=== PATIENT | female | born 1995 | race Hispanic/Latino ===

== ENCOUNTER 2017-09-28 20:40 | Outpatient (CLI) | payer MEDICAID ==
[2017-09-28 21:06] VITALS: BP 110/64
--- NOTE | 2017-09-29 01:37 | Ultrasound Report ---
FINAL REPORT EXAM: US OB BPP WO NON-STRESS HISTORY: Decreased Movement TECHNIQUE: A limited OB sonogram was obtained for evaluation of the abdomen of fluid index. FINDINGS: The VSAU is 13.4 cm which is normal. The heart rate is 173 BPM. The biophysical profile score is 8 out of 8. IMPRESSION: The VASU is normal at 13.4 cm. The biophysical profile score is 8 out of 8. The heart rate is 173 BPM.
--- NOTE | 2017-09-29 01:38 | Ultrasound Report ---
FINAL REPORT EXAM: US OB LIMITED HISTORY: Decreased Movement TECHNIQUE: A limited OB sonogram was obtained for evaluation of biophysical profile and abdominal fluid volume. FINDINGS: The biophysical profile score was 8 out of 8. The VASU is 13.4 cm which is normal. The heart rate is 173 BPM. IMPRESSION: Biophysical profile score of 8 out of 8. Normal VASU of 13.4 cm. The heart rate is 173 BPM
== END 2017-09-29 00:32 | disposition home or self-care (01) ==
LOC: TRG 20:40
PROVIDERS: ATTEND Obstetrics & Gynecology
DX: O62.9 Abnormality of forces of labor, unspecified (principal); O99.333 Smoking (tobacco) complicating pregnancy, third trimester; F17.210 Nicotine dependence, cigarettes, uncomplicated; Z3A.33 33 weeks gestation of pregnancy
CPT/HCPCS: 59025; 76815; 76819

== ENCOUNTER 2017-10-07 20:13 | Outpatient (CLI) | payer MEDICAID ==
[2017-10-07] MEDS ORDERED: LACTATED RINGERS 1,000 ML IV ONE (20:39)
[2017-10-07 20:48] VITALS: BP 132/63
--- NOTE | 2017-10-07 22:47 | Ultrasound Report ---
FINAL REPORT EXAM: US OB BPP WO NON-STRESS HISTORY: Decreased movement TECHNIQUE: Real-time sonography was performed of the gravid uterus for biophysical profile and images are submitted for interpretation. PRIORS: 09/28/2017 FINDINGS: There is a stable fetus in the uterus in a cephalic presentation. The placenta is anterior and the os is clear. The amniotic fluid index is normal at 15 cm. The heart is beating at a rate of 130 beats per minute. Biophysical profile: Breathin Movement: 2 Tone: 2 Fluid volume: 2 IMPRESSION: Normal biophysical profile, 11/01
--- NOTE | 2017-10-07 22:54 | Ultrasound Report ---
FINAL REPORT PROCEDURE: Limited obstetrical ultrasound. TECHNIQUE: Real-time limited sonographic examination was performed for evaluation of size, position, heartbeat, fluid volume for each fetus with image documentation (1 or more fetuses). CPT 89170 HISTORY: Decreased movement, labor. COMPARISON: Limited obstetrical ultrasound 09/28/2017. FINDINGS: There is a single viable fetus in cephalic presentation. The amniotic fluid index measures 15.0 centimeters. The placenta is anterior in location and grade 0. The heart rate is documented at 130 beats per minute. IMPRESSION: Viable fetus in cephalic presentation.
== END 2017-10-07 22:15 | disposition home or self-care (01) ==
LOC: TRG 20:13
PROVIDERS: ATTEND Obstetrics & Gynecology
DX: O47.03 False labor before 37 completed weeks of gestation, third trimester (principal); O99.333 Smoking (tobacco) complicating pregnancy, third trimester; F17.210 Nicotine dependence, cigarettes, uncomplicated; Z3A.34 34 weeks gestation of pregnancy
CPT/HCPCS: 76815; 76819

== ENCOUNTER 2017-10-17 15:51 | Outpatient (CLI) | payer MEDICAID ==
[2017-10-17] MEDS ORDERED: LACTATED RINGERS 500 ML IV ONE (16:28)
[2017-10-17 16:57] LABS: Bacteria,Urine 1+ /HPF (Negative); Bilirubin,Urine NEG (Negative); Blood,Urine NEG (Negative); Color,Urine Yellow (Yellow); Mucus,Urine FEW /HPF; Protein,Urine <15 mg/dL mg/dL (Negative); Urobilinogen,Urine < 2.0 mg/dL (<2.0)
[2017-10-17] MEDS ORDERED: LACTATED RINGERS 1,000 ML IV ONE (17:35)
[2017-10-17] MEDS ORDERED: VISTARIL PO PRN (17:35)
[2017-10-17 18:31] VITALS: BP 124/78
== END 2017-10-17 18:47 | disposition home or self-care (01) ==
LOC: TRG 15:51
PROVIDERS: ATTEND Obstetrics & Gynecology
DX: O47.03 False labor before 37 completed weeks of gestation, third trimester (principal); Z3A.35 35 weeks gestation of pregnancy; O99.333 Smoking (tobacco) complicating pregnancy, third trimester
CPT/HCPCS: 59025; 81001; 96360; J7120; Q0177

== ENCOUNTER 2017-10-24 12:08 | Emergency (ER) | payer MEDICAID ==
--- NOTE | 2017-10-24 13:21 | Emergency Department Report ---
Minor Respiratory - HPI Chief Complaint: Upper Respiratory Infection Stated Complaint: COUGH Time Seen by Provider: 10/24/17 13:02 Duration: 3 Days Severity: mild Minor Respiratory: Yes Rhinorrhea, Yes Able to Tolerate Fluids, Yes Cough (dry) , No Sore Throat, No Ear Pain, No Sick Contacts, No Hemoptysis, No Chest Pain, No Shortness of Breath, No Fever Other History: Patient is a 22-year-old female with past medical history of asthma and bronchitis who is presenting with 3 days of cough. Patient states she's been taking her albuterol inhaler and [id number] cough medicines without relief. ED Review of Systems ROS: Stated complaint: COUGH Other details as noted in HPI Comment: All other systems reviewed and negative ED Past Medical Hx - Past Medical History Hx Hypertension: No Hx Heart Attack/AMI: No Hx Congestive Heart Failure: No Hx Diabetes: No Hx Deep Vein Thrombosis: No Hx Renal Disease: No Hx Sickle Cell Disease: No Hx Seizures: No Hx Asthma: Yes Hx COPD: No Hx HIV: No - Surgical History Past Surgical History?: No - Social History Smoking Status: Current Every Day Smoker Substance Use Type: None - Medications Home Medications: Home Medications Medication Instructions Recorded Confirmed Last Taken Type Doxycycline [Vibramycin CAP] 100 mg PO Q12HR #14 capsule 10/24/17 Unknown Rx predniSONE [Deltasone] 20 mg PO QDAY #5 tab 10/24/17 Unknown Rx Minor Respiratory Exam - Exam General: Vital signs noted. No distress. Alert and acting appropriately. HEENT: Yes Moist Mucous Membranes, No Pharyngeal Erythema, No Pharyngeal Exudates, No Rhinorrhea, No Conjuctival Injection, No Frontal Tenderness, No Maxillary Tenderness Ear: Neither TM Bulge, Neither TM Erythema, Neither EAC Pain, Neither EAC Discharge Neck: Yes Supple, No Adenopathy Lungs: Yes Good Air Exchange, No Wheezes, No Ronchi, No Stridor, No Cough, No Labored Respirations, No Retractions, No Use of Accessory Muscles, No Other Abnormal Lung Sounds Heart: Yes Regular, No Murmur Abdomen: Yes Normal Bowel Sounds, No Tenderness, No Peritoneal Signs Skin: No Rash, No Edema Neurologic: Alert and oriented, no deficits. Musculoskeletal: Unremarkable. ED Course Vital Signs 10/24/17 12:13 Temperature 98.2 F Pulse Rate 102 H Respiratory 18 Rate Blood Pressure 143/65 O2 Sat by Pulse 97 Oximetry Critical care attestation.: If time is entered above; I have spent that time in minutes in the direct care of this critically ill patient, excluding procedure time. ED Disposition Clinical Impression: Acute bronchitis Qualifiers: Bronchitis organism: unspecified organism Qualified Code(s): J20.9 - Acute bronchitis, unspecified Disposition: DC-01 TO HOME OR SELFCARE Is pt being admited?: No Does the pt Need Aspirin: No Condition: Stable Instructions: Acute Bronchitis (ED) Referrals: PRIMARY CARE, [Primary Care Provider] - 3-5 Days
[2017-10-24 13:35] VITALS: BP 140/70
== END 2017-10-24 13:36 | disposition home or self-care (01) ==
LOC: ED 12:08
DX: J20.9 Acute bronchitis, unspecified (principal); F17.200 Nicotine dependence, unspecified, uncomplicated; J45.909 Unspecified asthma, uncomplicated
CPT/HCPCS: 99282

== ENCOUNTER 2017-10-28 21:11 | Outpatient (CLI) | payer MEDICAID ==
[2017-10-28 21:26] VITALS: BP 137/67
[2017-10-28] MEDS ORDERED: LACTATED RINGERS 1,000 ML IV ONE (21:37)
--- NOTE | 2017-10-28 22:52 | Ultrasound Report ---
FINAL REPORT PROCEDURE: US OB LIMITED TECHNIQUE: Real-time limited sonographic examination was performed for evaluation of amniotic fluid index for each fetus with image documentation (1 or more fetuses). CPT 96057 HISTORY: leaking fluid COMPARISON: No prior studies are available for comparison. FINDINGS: There is single intrauterine gestation with a heart rate of 138 beats per minute. Amniotic fluid index is 7.5 centimeters which is within limits IMPRESSION: Amniotic fluid index is within normal limits
--- NOTE | 2017-10-28 23:03 | Ultrasound Report ---
FINAL REPORT PROCEDURE: US OB BPP WO NON-STRESS TECHNIQUE: Sonographic evaluation for breathing, movement, tone, and amniotic fluid volume was performed. CPT 63285 HISTORY: leaking fluid COMPARISON: No prior studies are available for comparison. FINDINGS: Amniotic fluid volume: Normal-score 2. At least one vertical pocket > 2 cm or more in vertical axis. breathing: Normal-score 2. movement: Normal-score 2. tone: Normal. Score: 8 of 8. IMPRESSION: Normal biophysical profile.
== END 2017-10-28 22:52 | disposition home or self-care (01) ==
LOC: TRG 21:11
PROVIDERS: ATTEND Obstetrics & Gynecology
DX: O47.03 False labor before 37 completed weeks of gestation, third trimester (principal); O99.333 Smoking (tobacco) complicating pregnancy, third trimester; Z3A.37 37 weeks gestation of pregnancy; Z88.6 Allergy status to analgesic agent
CPT/HCPCS: 59025; 76815; 76819

== ENCOUNTER 2019-02-12 22:23 | Outpatient (CLI) | payer MEDICAID ==
[2019-02-12 23:57] LABS: Amphetamine Screen,Urine PRESUMPTIVE NEGATIVE; Benzodiazepines Screen,Urine PRESUMPTIVE NEGATIVE; Cannabinoid Screen,Urine PRESUMPTIVE NEGATIVE; Cocaine Screen,Urine PRESUMPTIVE NEGATIVE; Methadone Screen,Urine PRESUMPTIVE NEGATIVE; Opiate Screen,Urine PRESUMPTIVE NEGATIVE
[2019-02-13 00:05] LABS: Bacteria,Urine 1+ /HPF (Negative); Bilirubin,Urine NEG (Negative); Blood,Urine NEG (Negative); Calcium Oxalate Crystals,Urine 2+; Color,Urine Yellow (Yellow); Mucus,Urine FEW /HPF; Urobilinogen,Urine < 2.0 mg/dL (<2.0)
[2019-02-13 00:31] VITALS: BP 141/88
== END 2019-02-13 00:37 | disposition home or self-care (01) ==
LOC: TRG 22:23
PROVIDERS: ATTEND Obstetrics & Gynecology
DX: O47.1 False labor at or after 37 completed weeks of gestation (principal); Z3A.38 38 weeks gestation of pregnancy
CPT/HCPCS: 80307; 81001

== ENCOUNTER 2019-02-19 17:13 | Inpatient (IN) | payer MEDICAID ==
[2019-02-19] MEDS ORDERED: MINERAL OIL 30 ML ORAL LIQD PO PRN ×2 (18:52→20:04)
[2019-02-19] MEDS ORDERED: fentaNYL 100 MCG/2 ML INJ IV PRN (18:52)
[2019-02-19] MEDS ORDERED: ePHEDrine SULFATE 50 MG/1 ML INJ IV PRN ×2 (18:52→20:04)
[2019-02-19] MEDS ORDERED: BUTORPHANOL 2 MG/1 ML INJ IV PRN (18:52)
[2019-02-19] MEDS ORDERED: ONDANSETRON 4 MG/2 ML INJ IV PRN (18:52)
[2019-02-19] MEDS ORDERED: LIDOCAINE (2%) 20 MG/1 ML VIAL 20 ML MDV INFILTRATI ONE ×2 (18:52→20:04)
[2019-02-19] MEDS ORDERED: AMPICILLIN/NS 2 GM/100 ML 2 GM/100 ML BAG IV ONE (18:52)
[2019-02-19] MEDS ORDERED: TERBUTALINE 1 MG/1 ML INJ SUB-Q PRN ×2 (18:52→20:04)
[2019-02-19] MEDS ORDERED: OXYTOCIN DRIP 30 UNITS/500 ML BAG IV SCH ×4 (19:00→21:00)
[2019-02-19] MEDS ORDERED: OXYTOCIN 20 UNIT/1000ML DRIP 20 UNITS/1,000 ML BAG IV SCH ×2 (19:00→21:00)
[2019-02-19] MEDS ORDERED: LACTATED RINGERS 1,000 ML IV SCH ×2 (19:00→21:00)
[2019-02-19 19:08] LABS: Hematocrit 37.1 % (30.3-42.9); Hemoglobin 12.6 gm/dl (10.1-14.3); Mean Corpuscular HGB Conc 34 % (30-34); Mean Corpuscular Volume 92 fl (79-97); Platelet Count 196 K/mm3 (140-440); Red Blood Count 4.01 M/mm3 (3.65-5.03); Red Cell Distribution Width 14.4 % (13.2-15.2)
--- NOTE | 2019-02-19 19:29 | History and Physical Report ---
History of Present Illness Date of examination: 02/19/19 Chief complaint: " I think my water broke" History of present illness: 23 y/o presents at Medications and Allergies Allergies Allergy/AdvReac Type Severity Reaction Status Date / Time erythromycin ethylsuccinate Allergy Hives Verified 10/24/17 12:13 [From Pediazole] sulfisoxazole acetyl Allergy Hives Verified 10/24/17 12:13 [From Pediazole] Home Medications Medication Instructions Recorded Confirmed Last Taken Type Ferrous Sulfate [Feosol 325 MG tab] 325 mg PO BID #60 tablet 11/20/17 Unknown Rx Ibuprofen [Motrin 600 MG tab] 600 mg PO Q6H #30 tablet 11/20/17 Unknown Rx Vit-Fe Fumar-FA [ 1 each PO QDAY #30 tablet 11/20/17 Unknown Rx Vitamin] Active Meds: Active Medications Butorphanol Tartrate (Stadol) 2 mg IV Q2H PRN PRN Reason: Pain , Severe (7-10) Ephedrine Sulfate (Ephedrine Sulfate) 10 mg IV Q2M PRN PRN Reason: Hypotension Fentanyl (Sublimaze) 100 mcg IV Q2H PRN PRN Reason: Labor Pain Oxytocin/Sodium Chloride (Pitocin/Ns 20 Unit/1000ml Drip) 20 units in 1,000 mls @ 125 mls/hr IV DIRECT ITA Oxytocin/Sodium Chloride (Pitocin/Ns 30 Unit/500ml) 30 units in 500 mls @ 1 mls/hr IV TITR ITA; Protocol Oxytocin/Sodium Chloride (Pitocin/Ns 30 Unit/500ml) 30 units in 500 mls @ 4 mls/hr IV TITR ITA; Protocol Lactated Ringer's (Lactated Ringers) 1,000 mls @ 125 mls/hr IV DIRECT ITA Ampicillin Sodium (Ampicillin/Ns 2 Gm/100 Ml) 2 gm in 100 mls @ 100 mls/hr IV ONCE ONE; Protocol Stop: 02/19/19 19:51 Ampicillin Sodium (Ampicillin/Ns 1 Gm/50 Ml) 1 gm in 50 mls @ 100 mls/hr IV Q4HR ITA; Protocol Mineral Oil (Mineral Oil) 30 ml PO QHS PRN PRN Reason: Constipation Ondansetron HCl (Zofran) 4 mg IV Q8H PRN PRN Reason: Nausea And Vomiting Exam - Constitutional Vitals: Temp Pulse Resp BP Pulse Ox 98.2 F 83 20 123/66 97 02/19/19 17:50 02/19/19 18:39 02/19/19 17:50 02/19/19 18:39 02/19/19 18:18 Results - Labs CBC & Chem 7: 02/19/19 Unknown Labs: Abnormal lab results 02/19/19 Range/Units Unknown WBC 11.9 H (4.5-11.0) K/mm3
--- NOTE | 2019-02-19 19:45 | History and Physical Report ---
History of Present Illness Date of examination: 02/19/19 Chief complaint: " I think my water broke" History of present illness: 23 y/o obese presents at 39.3 wks with c/o srom with cl fluid @ 1pm on 02/19/19 with mild uc. Pt received PNC at [facility] @ 14wk with a hx of sporadic visits.Pt reports 3 with a hx of a vanishing twin in 2018. Denies past surgical hx. Pt reports a hx of asthma, bipolar, anxiety/ depression, PTSD, and she is a smoker. Pt denies taking psych meds. Pt's mother is from lung ca. Pt reports an allergy to Pediazole. Previous placenta previa resolved during this preg. GBS is unknown. Past History Past Medical History: asthma, other (PTSD, depression/ anxiety, bipolar) Past Surgical History: no surgical history Family/Genetic History: cancer Social history: , smoking - Obstetrical History Expected Date of Delivery: 02/23/19 Actual Gestation: 39 Week(s) 3 Day(s) : 5 Medications and Allergies Allergies Allergy/AdvReac Type Severity Reaction Status Date / Time erythromycin ethylsuccinate Allergy Hives Verified 10/24/17 12:13 [From Pediazole] sulfisoxazole acetyl Allergy Hives Verified 10/24/17 12:13 [From Pediazole] Home Medications Medication Instructions Recorded Confirmed Last Taken Type Ferrous Sulfate [Feosol 325 MG tab] 325 mg PO BID #60 tablet 11/20/17 Unknown Rx Ibuprofen [Motrin 600 MG tab] 600 mg PO Q6H #30 tablet 11/20/17 Unknown Rx Vit-Fe Fumar-FA [ 1 each PO QDAY #30 tablet 11/20/17 Unknown Rx Vitamin] Active Meds: Active Medications Butorphanol Tartrate (Stadol) 2 mg IV Q2H PRN PRN Reason: Pain , Severe (7-10) Ephedrine Sulfate (Ephedrine Sulfate) 10 mg IV Q2M PRN PRN Reason: Hypotension Fentanyl (Sublimaze) 100 mcg IV Q2H PRN PRN Reason: Labor Pain Oxytocin/Sodium Chloride (Pitocin/Ns 20 Unit/1000ml Drip) 20 units in 1,000 mls @ 125 mls/hr IV DIRECT ITA Oxytocin/Sodium Chloride (Pitocin/Ns 30 Unit/500ml) 30 units in 500 mls @ 1 mls/hr IV TITR ITA; Protocol Oxytocin/Sodium Chloride (Pitocin/Ns 30 Unit/500ml) 30 units in 500 mls @ 4 mls/hr IV TITR ITA; Protocol Lactated Ringer's (Lactated Ringers) 1,000 mls @ 125 mls/hr IV DIRECT ITA Ampicillin Sodium (Ampicillin/Ns 2 Gm/100 Ml) 2 gm in 100 mls @ 100 mls/hr IV ONCE ONE; Protocol Stop: 02/19/19 19:51 Ampicillin Sodium (Ampicillin/Ns 1 Gm/50 Ml) 1 gm in 50 mls @ 100 mls/hr IV Q4HR ITA; Protocol Mineral Oil (Mineral Oil) 30 ml PO QHS PRN PRN Reason: Constipation Ondansetron HCl (Zofran) 4 mg IV Q8H PRN PRN Reason: Nausea And Vomiting Review of Systems Constitutional: poor appetite Gastrointestinal: heartburn Psychiatric: anxiety, depression - Vital Signs Vital signs: Vital Signs Pulse BP 89 126/91 02/19/19 17:47 02/19/19 17:47 Temp Pulse Resp BP Pulse Ox 98.2 F 83 20 123/66 97 02/19/19 17:50 02/19/19 18:39 02/19/19 17:50 02/19/19 18:39 02/19/19 18:18 - Physical Exam Uterus: Positive: enlarged - Obstetrical FHR: category 1 Uterine Contraction Monitor Mode: External Cervical Dilatation: 2 (per nurse) Cervical Effacement Percentage: 50 (per nurse) station: -3 Uterine Contraction Pattern: Absent Results Result Diagrams: 02/19/19 Unknown Abnormal lab results 02/19/19 Range/Units Unknown WBC 11.9 H (4.5-11.0) K/mm3 All other labs normal. Assessment and Plan - Patient Problems (1) Limited care in third trimester Onset Date: 02/19/19 Current Visit: No Status: Acute Plan to address problem: A: IUP @ 39.3 wks with SROM cl fluid Unknown GBS P: Light meal followed by Pitocin Ampicillin 2gms Epidural prn Anticipate (2) 39 weeks gestation of Onset Date: 11/17/17 Current Visit: No Status: Resolved
[2019-02-19] MEDS ORDERED: TERBUTALINE 1 MG/1 ML INJ IVP PRN (20:04)
[2019-02-19] MEDS ORDERED: AMPICILLIN/NS 1 GM/50 ML 1 GM/50 ML BAG IV SCH (22:00)
[2019-02-20] MEDS ORDERED: BUPIVACAINE/PF (0.25%) 2.5 MG/ML 10 ML VIAL INFILTRATI ONE (00:52)
[2019-02-20] MEDS ORDERED: ePHEDrine SULFATE 50 MG/1 ML INJ IV PRN (01:22)
[2019-02-20] MEDS ORDERED: NALOXONE 2 MG/2 ML INJ IV PRN (01:22)
--- NOTE | 2019-02-20 01:22 | Anesthesia Consultation ---
Anesthesia Consult and Med Hx Date of service: 02/20/19 - Airway Anesthetic Teeth Evaluation: Good ROM Head & Neck: Adequate Mental/Hyoid Distance: Adequate Mallampati Class: Class II Intubation Access Assessment: Good - Pulmonary Exam CTA: Yes - Cardiac Exam Cardiac Exam: RRR - Pre-Operative Health Status ASA Pre-Surgery Classification: ASA2, Emergency Proposed Anesthetic Plan: Epidural - Pulmonary Hx Asthma: Yes COPD: No Hx Pneumonia: No - Cardiovascular System Hx Hypertension: No Hx Coronary Artery Disease: No Hx Heart Attack/AMI: No Hx Angina: No Hx Cardia Arrhythmia: No Hx Heart Murmur: No - Central Nervous System Hx Seizures: No Hx Psychiatric Problems: Yes (DEPRESSION, ANXIETY, AND PTSD) - Endocrine Hx Renal Disease: No Hx End Stage Renal Disease: No Hx Hypothyroidism: No Hx Hyperthyroidism: No - Hematic Hx Anemia: Yes Hx Sickle Cell Disease: No - Other Systems Hx Alcohol Use: No
[2019-02-20] MEDS ORDERED: fentaNYL-BUPIV 2 MCG/ML-0.125% 200 MCG/100 ML BAG EPIDURAL SCH (02:00)
[2019-02-20] MEDS ORDERED: SODIUM CHLORIDE 0.9% 1000 ML 1,000 ML ONE (03:23)
[2019-02-20] MEDS ORDERED: METOCLOPRAMIDE 10 MG/2 ML INJ ONE (03:57)
[2019-02-20] MEDS ORDERED: FAMOTIDINE 20 MG/2 ML INJ IV ONE ×2 (03:57→04:28)
[2019-02-20] MEDS ORDERED: ceFAZolin/Water 2 GM/20 ML 2 GM/20 ML SYRINGE IV ONE (03:57)
[2019-02-20] MEDS ORDERED: BICITRA ORAL LIQD 30ML ONE (03:57)
[2019-02-20] MEDS ORDERED: BICITRA ORAL LIQD 30ML PO ONE (04:28)
[2019-02-20] MEDS ORDERED: METOCLOPRAMIDE 10 MG/2 ML INJ IV ONE (04:28)
--- NOTE | 2019-02-20 04:50 | Progress Note ---
Assessment and Plan - Patient Problems (1) Limited care in third trimester Onset Date: 02/19/19 Current Visit: No Status: Acute Plan to address problem: @ 3:20 AM O: VSS afebrile FHT 120 with mod hussain and repetitive variables down to 80s UC q1-2 min apart VE: 5/50%/-3 Pitocin off A: CAT II FHT p:Resuscitative measures implemented, IUPC and IFM placed Amnio inf initiated, Will continue monitoring and intervene as necessary, POC agrees with plan (2) 39 weeks gestation of Onset Date: 11/17/17 Current Visit: No Status: Resolved Subjective - Subjective Date of service: 02/20/19 Interval history: 23 y/o obese presents at 39.3 wks with c/o srom with cl fluid @ 1pm on 02/19/19 with mild uc. Pt received PNC at [facility] @ 14wk with a hx of sporadic visits.Pt reports 3 with a hx of a vanishing twin in 2018. Denies past surgical hx. Pt reports a hx of asthma, bipolar, anxiety/ depression, PTSD, and she is a smoker. Pt denies taking psych meds. Pt's mother is from lung ca. Pt reports an allergy to Pediazole. Previous placenta previa resolved during this preg. GBS is unknown. Patient reports: other Objective - Vital Signs Vital Signs: Vital Signs - 12hr 02/19/19 02/19/19 02/19/19 17:47 17:48 17:50 Temperature 98.2 F Pulse Rate 89 96 H 107 H Respiratory 20 Rate Blood Pressure 126/91 121/89 Blood Pressure 121/89 [Left] Blood Pressure [Right] O2 Sat by Pulse 97 96 Oximetry 02/19/19 02/19/19 02/19/19 17:53 17:58 18:03 Temperature Pulse Rate 95 H 97 H 99 H Respiratory Rate Blood Pressure Blood Pressure [Left] Blood Pressure [Right] O2 Sat by Pulse 98 98 97 Oximetry 02/19/19 02/19/19 02/19/19 18:08 18:13 18:18 Temperature Pulse Rate 90 92 H 98 H Respiratory Rate Blood Pressure Blood Pressure [Left] Blood Pressure [Right] O2 Sat by Pulse 96 98 97 Oximetry 02/19/19 02/19/19 02/19/19 18:30 18:39 19:00 Temperature 98 F 98.1 F Pulse Rate 83 83 Respiratory 18 Rate Blood Pressure 123/66 Blood Pressure [Left] Blood Pressure 123/66 [Right] O2 Sat by Pulse Oximetry 02/19/19 02/19/19 02/19/19 20:56 21:00 21:26 Temperature 98.6 F Pulse Rate 72 71 Respiratory Rate Blood Pressure 131/70 125/62 Blood Pressure [Left] Blood Pressure [Right] O2 Sat by Pulse Oximetry 02/19/19 02/19/19 02/19/19 21:56 22:26 22:56 Temperature Pulse Rate 91 H 75 81 Respiratory Rate Blood Pressure 133/78 144/86 143/82 Blood Pressure [Left] Blood Pressure [Right] O2 Sat by Pulse Oximetry 02/19/19 02/19/19 02/19/19 23:00 23:26 23:55 Temperature 98.4 F Pulse Rate 84 68 Respiratory Rate Blood Pressure 135/95 133/92 Blood Pressure [Left] Blood Pressure [Right] O2 Sat by Pulse Oximetry 02/20/19 02/20/19 02/20/19 00:26 00:38 00:43 Temperature Pulse Rate 78 83 86 Respiratory Rate Blood Pressure 126/68 Blood Pressure [Left] Blood Pressure [Right] O2 Sat by Pulse 95 97 Oximetry 02/20/19 02/20/19 02/20/19 00:48 00:56 01:01 Temperature Pulse Rate 82 97 H 88 Respiratory Rate Blood Pressure Blood Pressure [Left] Blood Pressure [Right] O2 Sat by Pulse 98 99 99 Oximetry 02/20/19 02/20/19 02/20/19 01:03 01:06 01:09 Temperature Pulse Rate 80 87 80 Respiratory Rate Blood Pressure 139/82 Blood Pressure [Left] Blood Pressure [Right] O2 Sat by Pulse 98 88 Oximetry 02/20/19 02/20/19 02/20/19 01:10 01:11 01:12 Temperature Pulse Rate 81 83 82 Respiratory Rate Blood Pressure 121/74 124/73 Blood Pressure [Left] Blood Pressure [Right] O2 Sat by Pulse 98 Oximetry 02/20/19 02/20/19 02/20/19 01:15 01:16 01:18 Temperature Pulse Rate 83 90 86 Respiratory Rate Blood Pressure 128/76 126/70 Blood Pressure [Left] Blood Pressure [Right] O2 Sat by Pulse 98 Oximetry 02/20/19 02/20/19 02/20/19 01:21 01:24 01:26 Temperature Pulse Rate 72 85 106 H Respiratory Rate Blood Pressure 119/63 118/57 Blood Pressure [Left] Blood Pressure [Right] O2 Sat by Pulse 98 99 Oximetry 02/20/19 02/20/19 02/20/19 01:27 01:31 01:36 Temperature Pulse Rate 81 79 85 Respiratory Rate Blood Pressure 111/55 Blood Pressure [Left] Blood Pressure [Right] O2 Sat by Pulse 100 100 Oximetry 02/20/19 02/20/19 02/20/19 01:41 01:44 01:46 Temperature Pulse Rate 84 81 80 Respiratory Rate Blood Pressure 143/56 Blood Pressure [Left] Blood Pressure [Right] O2 Sat by Pulse 100 100 Oximetry 02/20/19 02/20/19 02/20/19 01:51 01:56 01:58 Temperature Pulse Rate 68 72 79 Respiratory Rate Blood Pressure 121/53 Blood Pressure [Left] Blood Pressure [Right] O2 Sat by Pulse 100 100 Oximetry 02/20/19 02/20/19 02/20/19 02:01 02:06 02:11 Temperature Pulse Rate 84 69 70 Respiratory Rate Blood Pressure Blood Pressure [Left] Blood Pressure [Right] O2 Sat by Pulse 100 100 100 Oximetry 02/20/19 02/20/19 02/20/19 02:15 02:16 02:21 Temperature Pulse Rate 67 76 96 H Respiratory Rate Blood Pressure 119/70 Blood Pressure [Left] Blood Pressure [Right] O2 Sat by Pulse 100 100 Oximetry 02/20/19 02/20/19 02/20/19 02:26 02:31 02:36 Temperature Pulse Rate 77 74 68 Respiratory Rate Blood Pressure Blood Pressure [Left] Blood Pressure [Right] O2 Sat by Pulse 100 100 100 Oximetry 02/20/19 02/20/19 02/20/19 02:41 02:46 02:51 Temperature Pulse Rate 73 72 70 Respiratory Rate Blood Pressure Blood Pressure [Left] Blood Pressure [Right] O2 Sat by Pulse 100 100 100 Oximetry 02/20/19 02/20/19 02/20/19 02:56 03:01 03:06 Temperature Pulse Rate 79 90 99 H Respiratory Rate Blood Pressure Blood Pressure [Left] Blood Pressure [Right] O2 Sat by Pulse 100 100 100 Oximetry 02/20/19 02/20/1919 03:11 03:16 03:21 Temperature Pulse Rate 89 112 H 74 Respiratory Rate Blood Pressure Blood Pressure [Left] Blood Pressure [Right] O2 Sat by Pulse 100 95 100 Oximetry 02/20/19 02/20/19 02/20/19 03:26 03:31 03:36 Temperature Pulse Rate 65 77 71 Respiratory Rate Blood Pressure Blood Pressure [Left] Blood Pressure [Right] O2 Sat by Pulse 100 100 100 Oximetry 02/20/19 02/20/19 02/20/19 03:41 03:43 03:46 Temperature Pulse Rate 63 68 91 H Respiratory Rate Blood Pressure 122/79 Blood Pressure [Left] Blood Pressure [Right] O2 Sat by Pulse 100 100 Oximetry 02/20/19 02/20/19 02/20/19 03:51 03:56 03:59 Temperature Pulse Rate 65 71 58 L Respiratory Rate Blood Pressure 106/56 Blood Pressure [Left] Blood Pressure [Right] O2 Sat by Pulse 100 100 Oximetry 02/20/19 02/20/19 02/20/19 04:01 04:06 04:11 Temperature Pulse Rate 92 H 125 H 101 H Respiratory Rate Blood Pressure Blood Pressure [Left] Blood Pressure [Right] O2 Sat by Pulse 100 100 100 Oximetry 02/20/19 02/20/19 02/20/19 04:13 04:16 04:21 Temperature Pulse Rate 101 H 94 H Respiratory Rate Blood Pressure 112/56 Blood Pressure [Left] Blood Pressure [Right] O2 Sat by Pulse 100 100 Oximetry - Labs Labs: Abnormal Labs 02/19/19 Unknown WBC 11.9 H Laboratory Results - last 24 hr 02/19/19 02/19/19 02/19/19 18:20 Unknown Unknown WBC 11.9 H RBC 4.01 Hgb 12.6 Hct 37.1 MCV 92 MCH 31 MCHC 34 RDW 14.4 Plt Count 196 Syphilis IgG Antibody Non-reactive Blood Type O POSITIVE Antibody Screen Negative
[2019-02-20] MEDS ORDERED: OXYTOCIN 20 UNIT/1000ML DRIP 20 UNITS/1,000 ML BAG IV SCH ×2 (05:00→06:00)
[2019-02-20] MEDS ORDERED: LACTATED RINGERS 1,000 ML IV SCH (05:00)
[2019-02-20] MEDS ORDERED: ceFAZolin/Water 2 GM/20 ML 2 GM/20 ML SYRINGE IV NR (05:00)
--- NOTE | 2019-02-20 05:00 | Progress Note ---
Assessment and Plan @ 4:15 am O: VSS/ Afebrile FHT 124 with mod hussain and repetitive decels down to 60s UC q2-3 per min VE 5/50%/-2 A: CAT II tracing P:Pt on hands and knees with O2 via FM, Dr Padilla notified and arrived at bedside Pt was prepped for a c/s and assisted to the OR - Patient Problems (1) Limited care in third trimester Onset Date: 02/19/19 Current Visit: No Status: Acute (2) 39 weeks gestation of Onset Date: 11/17/17 Current Visit: No Status: Resolved Subjective - Subjective Interval history: 23 y/o obese presents at 39.3 wks with c/o srom with cl fluid @ 1pm on 02/19/19 with mild uc. Pt received PNC at [facility] @ 14wk with a hx of sporadic visits.Pt reports 3 with a hx of a vanishing twin in 2018. Denies past surgical hx. Pt reports a hx of asthma, bipolar, anxiety/ depression, PTSD, and she is a smoker. Pt denies taking psych meds. Pt's mother is from lung ca. Pt reports an allergy to Pediazole. Previous placenta previa resolved during this preg. GBS is unknown. Patient reports: other Objective - Vital Signs Vital Signs: Vital Signs - 12hr 02/19/19 02/19/19 02/19/19 17:47 17:48 17:50 Temperature 98.2 F Pulse Rate 89 96 H 107 H Respiratory 20 Rate Blood Pressure 126/91 121/89 Blood Pressure 121/89 [Left] Blood Pressure [Right] O2 Sat by Pulse 97 96 Oximetry 02/19/19 02/19/19 02/19/19 17:53 17:58 18:03 Temperature Pulse Rate 95 H 97 H 99 H Respiratory Rate Blood Pressure Blood Pressure [Left] Blood Pressure [Right] O2 Sat by Pulse 98 98 97 Oximetry 02/19/19 02/19/19 02/19/19 18:08 18:13 18:18 Temperature Pulse Rate 90 92 H 98 H Respiratory Rate Blood Pressure Blood Pressure [Left] Blood Pressure [Right] O2 Sat by Pulse 96 98 97 Oximetry 02/19/19 02/19/19 02/19/19 18:30 18:39 19:00 Temperature 98 F 98.1 F Pulse Rate 83 83 Respiratory 18 Rate Blood Pressure 123/66 Blood Pressure [Left] Blood Pressure 123/66 [Right] O2 Sat by Pulse Oximetry 02/19/19 02/19/19 02/19/19 20:56 21:00 21:26 Temperature 98.6 F Pulse Rate 72 71 Respiratory Rate Blood Pressure 131/70 125/62 Blood Pressure [Left] Blood Pressure [Right] O2 Sat by Pulse Oximetry 02/19/19 02/19/19 02/19/19 21:56 22:26 22:56 Temperature Pulse Rate 91 H 75 81 Respiratory Rate Blood Pressure 133/78 144/86 143/82 Blood Pressure [Left] Blood Pressure [Right] O2 Sat by Pulse Oximetry 02/19/19 02/19/19 02/19/19 23:00 23:26 23:55 Temperature 98.4 F Pulse Rate 84 68 Respiratory Rate Blood Pressure 135/95 133/92 Blood Pressure [Left] Blood Pressure [Right] O2 Sat by Pulse Oximetry 02/20/19 02/20/19 02/20/19 00:26 00:38 00:43 Temperature Pulse Rate 78 83 86 Respiratory Rate Blood Pressure 126/68 Blood Pressure [Left] Blood Pressure [Right] O2 Sat by Pulse 95 97 Oximetry 02/20/19 02/20/19 02/20/19 00:48 00:56 01:01 Temperature Pulse Rate 82 97 H 88 Respiratory Rate Blood Pressure Blood Pressure [Left] Blood Pressure [Right] O2 Sat by Pulse 98 99 99 Oximetry 02/20/19 02/20/19 02/20/19 01:03 01:06 01:09 Temperature Pulse Rate 80 87 80 Respiratory Rate Blood Pressure 139/82 Blood Pressure [Left] Blood Pressure [Right] O2 Sat by Pulse 98 88 Oximetry 02/20/19 02/20/19 02/20/19 01:10 01:11 01:12 Temperature Pulse Rate 81 83 82 Respiratory Rate Blood Pressure 121/74 124/73 Blood Pressure [Left] Blood Pressure [Right] O2 Sat by Pulse 98 Oximetry 02/20/19 02/20/19 02/20/19 01:15 01:16 01:18 Temperature Pulse Rate 83 90 86 Respiratory Rate Blood Pressure 128/76 126/70 Blood Pressure [Left] Blood Pressure [Right] O2 Sat by Pulse 98 Oximetry 02/20/19 02/20/19 02/20/19 01:21 01:24 01:26 Temperature Pulse Rate 72 85 106 H Respiratory Rate Blood Pressure 119/63 118/57 Blood Pressure [Left] Blood Pressure [Right] O2 Sat by Pulse 98 99 Oximetry 02/20/19 02/20/19 02/20/19 01:27 01:31 01:36 Temperature Pulse Rate 81 79 85 Respiratory Rate Blood Pressure 111/55 Blood Pressure [Left] Blood Pressure [Right] O2 Sat by Pulse 100 100 Oximetry 02/20/19 02/20/19 02/20/19 01:41 01:44 01:46 Temperature Pulse Rate 84 81 80 Respiratory Rate Blood Pressure 143/56 Blood Pressure [Left] Blood Pressure [Right] O2 Sat by Pulse 100 100 Oximetry 02/20/19 02/20/19 02/20/19 01:51 01:56 01:58 Temperature Pulse Rate 68 72 79 Respiratory Rate Blood Pressure 121/53 Blood Pressure [Left] Blood Pressure [Right] O2 Sat by Pulse 100 100 Oximetry 02/20/19 02/20/19 02/20/19 02:01 02:06 02:11 Temperature Pulse Rate 84 69 70 Respiratory Rate Blood Pressure Blood Pressure [Left] Blood Pressure [Right] O2 Sat by Pulse 100 100 100 Oximetry 02/20/19 02/20/19 02/20/19 02:15 02:16 02:21 Temperature Pulse Rate 67 76 96 H Respiratory Rate Blood Pressure 119/70 Blood Pressure [Left] Blood Pressure [Right] O2 Sat by Pulse 100 100 Oximetry 02/20/19 02/20/19 02/20/19 02:26 02:31 02:36 Temperature Pulse Rate 77 74 68 Respiratory Rate Blood Pressure Blood Pressure [Left] Blood Pressure [Right] O2 Sat by Pulse 100 100 100 Oximetry 02/20/19 02/20/19 02/20/19 02:41 02:46 02:51 Temperature Pulse Rate 73 72 70 Respiratory Rate Blood Pressure Blood Pressure [Left] Blood Pressure [Right] O2 Sat by Pulse 100 100 100 Oximetry 02/20/19 02/20/19 02/20/19 02:56 03:01 03:06 Temperature Pulse Rate 79 90 99 H Respiratory Rate Blood Pressure Blood Pressure [Left] Blood Pressure [Right] O2 Sat by Pulse 100 100 100 Oximetry 02/20/19 02/20/19 02/20/19 03:11 03:16 03:21 Temperature Pulse Rate 89 112 H 74 Respiratory Rate Blood Pressure Blood Pressure [Left] Blood Pressure [Right] O2 Sat by Pulse 100 95 100 Oximetry 02/20/19 02/20/19 02/20/19 03:26 03:31 03:36 Temperature Pulse Rate 65 77 71 Respiratory Rate Blood Pressure Blood Pressure [Left] Blood Pressure [Right] O2 Sat by Pulse 100 100 100 Oximetry 02/20/19 02/20/19 02/20/19 03:41 03:43 03:46 Temperature Pulse Rate 63 68 91 H Respiratory Rate Blood Pressure 122/79 Blood Pressure [Left] Blood Pressure [Right] O2 Sat by Pulse 100 100 Oximetry 02/20/19 02/20/19 02/20/19 03:51 03:56 03:59 Temperature Pulse Rate 65 71 58 L Respiratory Rate Blood Pressure 106/56 Blood Pressure [Left] Blood Pressure [Right] O2 Sat by Pulse 100 100 Oximetry 02/20/19 02/20/19 02/20/19 04:01 04:06 04:11 Temperature Pulse Rate 92 H 125 H 101 H Respiratory Rate Blood Pressure Blood Pressure [Left] Blood Pressure [Right] O2 Sat by Pulse 100 100 100 Oximetry 02/20/19 02/20/19 02/20/19 04:13 04:16 04:21 Temperature Pulse Rate 101 H 94 H Respiratory Rate Blood Pressure 112/56 Blood Pressure [Left] Blood Pressure [Right] O2 Sat by Pulse 100 100 Oximetry - Labs Labs: Abnormal Labs 02/19/19 Unknown WBC 11.9 H Laboratory Results - last 24 hr 02/19/19 02/19/19 02/19/19 18:20 Unknown Unknown WBC 11.9 H RBC 4.01 Hgb 12.6 Hct 37.1 MCV 92 MCH 31 MCHC 34 RDW 14.4 Plt Count 196 Syphilis IgG Antibody Non-reactive Blood Type O POSITIVE Antibody Screen Negative
--- NOTE | 2019-02-20 05:21 | Operative Report ---
Operative Report Operative Report: Date of procedure: 02/20/2019 Pre-operative diagnosis: 1. Intrauterine at 39 4/7 weeks 2. Non-r eassuring surveillance Post-operative diagnosis: Same Procedure name(s): Primary low transverse section Surgeon: Ritesh Padilla MD Principal Database Developer: None Anesthesia: Epidural/Spinal anesthesia by Misael Boyle CRNA EBL: 400 mL's Findings: A 2620 gm male infant Apgars 8 at 1 minute 9 at 5 minutes. Nuchal cord x 1. Normal uterus. Normal tubes and ovaries bilaterally. Procedure: After the patient was prepped and draped in usual sterile fashion, and after satisfactory level of epidural/spinal anesthesia was obtained, the skin knife was used to make a transverse skin incision. The incision was incised down to layer of the fascia, which was nicked in the midline and extended laterally using the Bovie cautery. The rectus muscles were dissected off the rectus fascia both superiorly and inferiorly. The rectus bellies in the midline, and the peritoneum was entered under direct visualization. The peritoneal incision was extended superiorly and inferiorly, a bladder flap was created and the bladder blade was then placed. The uterus was scored in a curvilinear linear fashion, entered in the midline revealing clear amniotic fluid. The infant's head was delivered onto the surgical field, nuchal cord x 1 reduced, and the oropharynx and nasopharynx were bulb suctioned. The rest of the infants body delivered and the cord was doubly clamped and cut and the infant was handed to the awaiting respiratory team. The placenta was manually removed from the uterus, and the uterus removed from its normal anatomical position. After gentle uterine lavage, the incision was inspected and found to be without extensions. It was therefore closed in 2 layers using 0 Vicryl suture in a running interlocking fashion, the second layer imbricating the first. After good hemostasis was achieved, copious amounts or irrigation was performed, and the gutters were suctioned free of blood and blood clots. The uterus was then returned to its normal anatomical position, and the peritoneum was re-approximated using 3-0 Vicryl suture in a running interlocking fashion, and then the rectus muscles were loosely re-approximated using 3-0 Vicryl suture in a [id number] configuration. The fascia was then re- approximated using 0 Vicryl suture in running interlocking fashion. The subcutaneous layer was made hemostatic using Bovie cautery, and the skin edges re-approximated using 4-0 Vicryl suture in a sub-cuticular fashion. Patient tolerated the procedure well was transported to recovery in stable condition.
[2019-02-20] MEDS ORDERED: NALOXONE 0.4 MG/1 ML INJ IV PRN (05:24)
[2019-02-20] MEDS ORDERED: ACETAMINOPHEN 325 MG TAB PO PRN (05:24)
[2019-02-20] MEDS ORDERED: PROMETHAZINE 25 MG RECT SUPP PR PRN (05:24)
[2019-02-20] MEDS ORDERED: KETOROLAC 30 MG/1 ML INJ IV PRN (05:24)
[2019-02-20] MEDS ORDERED: LANOLIN/ZINC/DIMETHICONE (LANSINOH) 7 GM TP PRN (05:24)
[2019-02-20] MEDS ORDERED: MAGNESIUM HYDROXIDE (MOM) ORAL LIQD UDC PO PRN (05:24)
[2019-02-20] MEDS ORDERED: WITCH HAZEL/ GLYCERIN PAD TP PRN (05:24)
[2019-02-20] MEDS ORDERED: SENNOSIDES 8.6 MG TAB PO PRN (05:24)
[2019-02-20] MEDS ORDERED: SUCCINYLCHOLINE CHLORIDE 200 MG/10 ML INJ MDV ONE (05:47)
[2019-02-20] MEDS ORDERED: METOPROLOL TARTRATE 5 MG/5 ML INJ IV ONE (05:47)
[2019-02-20] MEDS ORDERED: PROPOFOL 200 MG/20 ML VIAL IV ONE (05:47)
[2019-02-20] MEDS ORDERED: fentaNYL 100 MCG/2 ML INJ ONE (05:54)
[2019-02-20] MEDS ORDERED: MIDAZOLAM 2 MG/2 ML INJ ONE (05:54)
[2019-02-20] MEDS ORDERED: D5W/LACTATED RINGERS 1,000 ML IV SCH (06:00)
--- NOTE | 2019-02-20 06:17 | Post Anesthesia Evaluation ---
- Post Anesthesia Evaluation Patient Participated: Yes Airway Patent: Yes Stable Respiratory Function: Yes Nausea/Vomiting: No Temp > 96.8F: Yes Pain Manageable: Yes Adequeate Hydration: Yes Anesthesia Complications: No Block Receding Appropriately: Yes Patient on Ventilator: No
--- NOTE | 2019-02-20 06:17 | Anesthesia Day of Surgery ---
Anesthesia Day of Surgery - Day of Surgery Patient Examined: Yes Patient H&P Reviewed: Yes Patient is NPO: Yes
[2019-02-20] MEDS ORDERED: KETAMINE/STERILE WATER 50 MG/ML SYRINGE ONE (06:24)
[2019-02-20] MEDS ORDERED: dexAMETHasone 20 MG/5 ML VIAL ONE (06:29)
[2019-02-20] MEDS ORDERED: DEXMEDETOMIDINE 200 MCG/2 ML VIAL IV ONE (06:29)
[2019-02-20] MEDS ORDERED: ONDANSETRON 4 MG/2 ML INJ ONE (06:29)
[2019-02-20] MEDS ORDERED: OXYTOCIN 10 UNIT/1 ML INJ ONE (06:29)
[2019-02-20] MEDS ORDERED: LIDOCAINE MPF (2%) 20 MG/1 ML VIAL 5 ML ONE (06:29)
[2019-02-20] MEDS ORDERED: KETOROLAC 30 MG/1 ML INJ ONE (06:48)
[2019-02-20] MEDS: oxyCODONE /ACETAMINOPHEN 5-325MG TAB PO PRN ×2 (10:34→16:18)
[2019-02-20] MEDS: FERROUS SULFATE 325 MG TAB PO SCH (10:34)
[2019-02-20] MEDS: PRENATAL VIT27-FE FUMARATE-FOLIC ACID VIT TAB PO SCH (10:34)
[2019-02-20] MEDS: IBUPROFEN 800 MG TAB PO PRN ×2 (14:13→20:42)
[2019-02-20] MEDS: ceFAZolin/NS 1 GM/50 ML 1 GM/50 ML BAG IV SCH ×2 (14:40→21:50)
[2019-02-20 20:28] LABS: Hematocrit 26.8 % (30.3-42.9); Hemoglobin 9.2 gm/dl (10.1-14.3)
[2019-02-21] MEDS: oxyCODONE /ACETAMINOPHEN 5-325MG TAB PO PRN ×3 (02:36→18:17)
[2019-02-21] MEDS ORDERED: MEASLES, MUMPS & RUBELLA 12,500 UNIT/0.5 ML VACCINE SUB-Q ONE (05:25)
[2019-02-21] MEDS ORDERED: TETANUS,DIPH,PERTUSS(ACELL) VACCINE 0.5 ML SYRINGE IM ONE (06:00)
[2019-02-21] MEDS: IBUPROFEN 800 MG TAB PO PRN (06:06)
[2019-02-21] MEDS: PRENATAL VIT27-FE FUMARATE-FOLIC ACID VIT TAB PO SCH (10:14)
[2019-02-21] MEDS: SIMETHICONE 80 MG CHEW TAB PO PRN ×2 (10:14→18:17)
[2019-02-21] MEDS: FERROUS SULFATE 325 MG TAB PO SCH (10:14)
--- NOTE | 2019-02-21 14:09 | Progress Note ---
Assessment and Plan A: POD#1 s/p Primary c/s Bottlefeeding VSS Pain well controlled P: Routine PP/PO orders Encouraged ambulation and Incentive Spirometer Anticipate Discharge in 24-48hrs Subjective - Subjective Date of service: 02/21/19 Principal diagnosis: POD#1 s/p Primary c/s Interval history: See H&P and delivery note Patient reports: appetite normal, voiding normally, pain well controlled, flatus, ambulating normally [place]: doing well Objective - Vital Signs Latest vital signs: Vital Signs Temp Pulse Resp BP Pulse Ox 02/21/19 07:34 97.8 F 91 H 16 125/78 98 02/21/19 06:06 18 02/21/19 04:13 97.9 F 69 18 116/83 99 02/21/19 02:36 18 02/20/19 23:42 98.0 F 76 18 123/84 99 02/20/19 21:10 98.2 F 90 20 113/73 99 02/20/19 20:42 18 02/20/19 17:09 97.7 F 90 18 123/72 98 Intake and Output 02/20/19 02/21/19 02/21/19 23:59 07:59 15:59 Intake Total 480 Output Total 875 Balance -875 480 Intake: Oral 480 Output: Urine 875 Indwelling Catheter 875 Other: Total, Intake Amount 240 Total, Output Amount 450 Voiding Method Toilet # Voids Indwelling Catheter 1 - Exam Breasts: Present: normal Cardiovascular: Present: Regular rate, Normal S1, Normal S2, No murmurs Lungs: Present: Clear to auscultation, Normal air movement Abdomen: Present: normal appearance, soft, normal bowel sounds. Absent: distention Vulva: both: normal Uterus: Present: firm, fundal height at umbilicus Extremities: Present: normal Deep Tendon Reflex Grade: Normal +2 Incision: Present: normal, dry, intact, dressed (Steri strips CDI) - Labs Labs: Abnormal lab results 02/20/19 Range/Units 19:48 Hgb 9.2 L D (10.1-14.3) gm/dl Hct 26.8 L D (30.3-42.9) %
[2019-02-21] MEDS: HYDROcodone/ACETAMINOPHEN 5-325 MG TAB PO PRN ×2 (16:40→21:50)
[2019-02-22] MEDS: oxyCODONE /ACETAMINOPHEN 5-325MG TAB PO PRN ×2 (05:10→15:04)
--- NOTE | 2019-02-22 09:04 | Progress Note ---
Assessment and Plan - Patient Problems (1) Status post Onset Date: 02/22/19 Current Visit: Yes Status: Resolved Plan to address problem: A: S/P C Section - POD #2 Doing well Asymptomatic anemia - stable P: May go home today. (2) Acute blood loss anemia Onset Date: 02/22/19 Current Visit: No Status: Resolved Subjective - Subjective Date of service: 02/22/19 Principal diagnosis: s/p Primary C Section - POD #2 Interval history: Pt is feeling well without complaints. Bleeding improved. She is tolerating a reg diet without nausea or vomiting, ambulating and voiding without difficulty. She wants to go home today. Patient reports: appetite normal, voiding normally, pain well controlled, flatus, ambulating normally, no dizzy ambulation, no nauseated [place]: doing well, nursing well, bottle feeding Objective - Vital Signs Latest vital signs: Vital Signs Temp Pulse Resp BP Pulse Ox 02/22/19 05:10 18 02/22/19 00:14 98.2 F 99 H 20 119/85 100 02/21/19 21:50 18 02/21/19 15:48 98.6 F 74 16 130/83 98 Intake and Output 02/21/19 02/22/19 02/22/19 22:59 06:59 14:59 Intake Total 480 Balance 480 Intake: Oral 480 Other: Total, Intake Amount 240 # Voids Indwelling Catheter 3 Void 1 1 - Exam Breasts: Present: deferred Cardiovascular: Present: Regular rate Lungs: Present: Clear to auscultation Abdomen: Present: normal appearance Extremities: Present: normal Incision: Present: normal, dry, intact - Labs Labs: Laboratory Tests 02/19/19 02/19/19 02/19/19 18:20 Unknown Unknown WBC 11.9 H RBC 4.01 Hgb 12.6 Hct 37.1 MCV 92 MCH 31 MCHC 34 RDW 14.4 Plt Count 196 Syphilis IgG Antibody Non-reactive Blood Type O POSITIVE Antibody Screen Negative 02/20/19 19:48 WBC RBC Hgb 9.2 L D Hct 26.8 L D MCV MCH MCHC RDW Plt Count Syphilis IgG Antibody Blood Type Antibody Screen
[2019-02-22] MEDS: FERROUS SULFATE 325 MG TAB PO SCH (09:38)
[2019-02-22] MEDS: PRENATAL VIT27-FE FUMARATE-FOLIC ACID VIT TAB PO SCH (09:38)
[2019-02-22] MEDS: SIMETHICONE 80 MG CHEW TAB PO PRN (09:42)
[2019-02-22] MEDS: HYDROcodone/ACETAMINOPHEN 5-325 MG TAB PO PRN (09:42)
--- NOTE | 2019-02-22 14:10 | Discharge Summary ---
Providers - Providers Date of Admission: 02/19/19 18:52 Date of discharge: 02/22/19 Attending physician: ROCÍO RIOS Primary care physician: ROCÍO RIOS Hospitalization Reason for admission: induction of labor, IUP at term Delivery: Procedure: section, primary low transverse Episiotomy: none Laceration: none Incision: normal, dry, intact Other procedures: none complications: none Discharge diagnosis: IUP at term delivered [place] baby: male Hospital course: Pt is a 23 y/o obese WF EDC 02/23/19; EGA 39 37 weeks presents to L&D with c/o srom with cl fluid @ 1pm on 02/19/19 with mild uc. Pt received PNC at [facility] @ 14wk with a hx of sporadic visits. Pt reports 3 with a hx of a vanishing twin in 2018. Denies past surgical hx. Pt reports a hx of asthma, bipolar, anxiety/ depression, PTSD, and she is a smoker. Pt denies taking psych meds. Pt's mother is from lung ca. Pt reports an allergy to Pediazole. Previous placenta previa resolved during this preg. GBS is unknown. She was admitted and progressed in labor until the tracing became non-reassuring with heart rate decelerations, and she was subsequently delivered by an uncomplicated C Section. Post operative course was uneventful a,d by POD #2 she was tolerating a reg diet without nausea or vomiting, ambulating and voiding without difficulty. She was therefore discharged to home on POD #2 in stable condition. Condition at discharge: Good Disposition: DC-01 TO HOME OR SELFCARE - Discharge Diagnoses (1) Status post Status: Resolved (2) Acute blood loss anemia Status: Resolved Plan - Discharge Medications Prescriptions: Ferrous Sulfate [Feosol 325 MG tab] 325 mg PO BID #60 tablet Ibuprofen [Motrin 600 MG tab] 600 mg PO Q6H #30 tablet oxyCODONE /ACETAMINOPHEN [Percocet 5/325] 1 tab PO Q6HR PRN #30 tablet PRN Reason: Pain Vit-Fe Fumar-FA [ Vitamin] 1 each PO QDAY #30 tablet - Provider Discharge Summary Activity: routine, no sex for 6 weeks, no heavy lifting 4 weeks, no strenuous exercise Diet: routine Instructions: routine Additional instructions: [] Smoking cessation referral if applicable(refer to patient education folder for contact #) [] Refer to [facility]'s [facility] Booklet Call your doctor immediately for: * Fever > 100.5 * Heavy vaginal bleeding ( >1 pad per hour) * Severe persistent headache * Shortness of breath * Reddened, hot, painful area to leg or breast * Drainage or odor from incision. * Keep incision clean and dry at all times and follow doctor's instructions regarding bathing/showering - Follow up plan Follow up: ROCÍO RIOS MD [Primary Care Provider] - 14 Days
[2019-02-22 17:27] VITALS: BP 140/88
== END 2019-02-22 16:15 | disposition home or self-care (01) | DRG 765 ==
LOC: TRG 17:13 → LD 17:13 → TRG 17:15 → LD 18:52 → OB 02-20 11:32
PROVIDERS: ADMIT Obstetrics & Gynecology; ATTEND Obstetrics & Gynecology
PROC: 10D00Z1 Extraction of Products of Conception, Low, Open Approach (ICD-10-PCS; principal; 2019-02-20)
PROC: 3E0234Z Introduction of Serum, Toxoid and Vaccine into Muscle, Percutaneous Approach (ICD-10-PCS; 2019-02-21)
DX: O75.0 Maternal distress during labor and delivery (principal); D62 Acute posthemorrhagic anemia; Z3A.39 39 weeks gestation of pregnancy; Z37.0 Single live birth; Z88.8 Allergy status to other drugs, medicaments and biological substances; Z23 Encounter for immunization; O99.52 Diseases of the respiratory system complicating childbirth; O99.344 Other mental disorders complicating childbirth; O99.334 Smoking (tobacco) complicating childbirth; F31.9 Bipolar disorder, unspecified; F17.200 Nicotine dependence, unspecified, uncomplicated; F41.9 Anxiety disorder, unspecified; Z80.1 Family history of malignant neoplasm of trachea, bronchus and lung; O90.81 Anemia of the puerperium; O99.214 Obesity complicating childbirth; E66.9 Obesity, unspecified
CPT/HCPCS: 36415; 85014; 85018; 85027; 86592; 86850; 86900; 86901; 90707; 99406; G0378; J0290; J0330; J0595; J0690; J1100; J1885; J2250; J2405; J2590; J2704; J2765; J3010; J3490; J7030; J7120; J7121